=== PATIENT | female | born 1995 | race Caucasian/White ===

== ENCOUNTER → 2022-08-19 | Outpatient (CLI) | payer OTHER ==
[2022-08-19 13:55] LABS: BASO % 0.6 % (0.0-1.0); EOS # 0.1 10^3/uL (0.0-0.5); EOS % 1.1 % (0.0-3.0); HEMATOCRIT 44.9 % (36.0-47.0); HEMOGLOBIN 14.8 g/dl (12.0-15.5); MEAN CORPUSCULAR HEMOGLOBIN 30.5 pg (27.0-33.0); MEAN CORPUSCULAR VOLUME 92.4 fl (80.0-96.0); MONO # 0.5 10^3/uL (0.0-0.8); MONO % 8.2 % (2.0-8.0); NEUTROPHILS # 3.9 10^3/uL (1.5-8.5); NEUTROPHILS % 58.8 % (36.0-66.0); PLATELET COUNT, AUTOMATED 251 10^3/uL (150-450); RED BLOOD COUNT 4.86 10^6/uL (4.00-5.40); WHITE BLOOD COUNT 6.6 10^3/uL (4.0-10.0)
[2022-08-19 14:24] LABS: IRON (FE) 184 UG/DL (50-170); PERCENT SATURATION 51.4 % (13.2-45.0); TOTAL IRON BINDING CAPACITY 358 UG/DL (250-425)
[2022-08-19 14:27] LABS: ALBUMIN 3.8 G/DL (3.2-5.2); ALKALINE PHOSPHATASE 39 U/L (46-116); ALT/SGPT 12 U/L (7.0-40); AST/SGOT 25 U/L (<34); BILIRUBIN,TOTAL 1.1 MG/DL (0.3-1.2); BLOOD UREA NITROGEN 16 MG/DL (9-23); CALCIUM LEVEL 8.9 MG/DL (8.5-10.1); CARBON DIOXIDE LEVEL 27 MMOL/L (20-31); CHLORIDE LEVEL 104 MMOL/L (98-107); CREATININE FOR GFR 0.72 MG/DL (0.55-1.30); FERRITIN 35.9 NG/ML (7.3-270.7); FREE T4 1.23 NG/DL (0.89-1.76); GLOMERULAR FILTRATION RATE > 60.0 (>60); GLUCOSE, FASTING 80 MG/DL (60-100); POTASSIUM SERUM 4.2 MMOL/L (3.5-5.1); SODIUM LEVEL 139 MMOL/L (136-145); THYROID STIMULATING HORMONE 0.797 uIU/ML (0.55-4.78); TOTAL 25(OH) VITAMIN D 19.2 NG/ML (20.0-100.0)
== END ==
LOC: M PLALAB 11:05
PROVIDERS: ATTEND Nurse Practitioner Family
DX: R53.83 Other fatigue (principal)

== ENCOUNTER → 2022-11-07 | Outpatient (REF) | payer OTHER | LOC: M SFHCPLAZ 14:10 | PROVIDERS: ATTEND Internal Medicine Hematology | DX: M25.551 Pain in right hip (principal); M25.552 Pain in left hip; Z53.8 Procedure and treatment not carried out for other reasons ==

== ENCOUNTER → 2022-11-07 | Outpatient (CLI) | payer OTHER | LOC: M PLALAB 14:08 | PROVIDERS: ATTEND Student in an Organized Health Care Education/Training Program | DX: M25.551 Pain in right hip (principal); M25.552 Pain in left hip ==

== ENCOUNTER → 2022-11-19 | Outpatient (CLI) | payer OTHER | LOC: M PLALAB 14:38 | PROVIDERS: ATTEND Nurse Practitioner Family | DX: E55.9 Vitamin D deficiency, unspecified (principal); Z12.4 Encounter for screening for malignant neoplasm of cervix; R87.615 Unsatisfactory cytologic smear of cervix ==